=== PATIENT | male | born 1940 | race Caucasian/White ===

== ENCOUNTER 2016-06-14 07:40 | Emergency (ER) | payer OTHER ==
[2016-06-14 07:46] VITALS: BP 146/77; PULSE 86; TEMP 98; BMI 28.3
--- NOTE | 2016-06-14 08:32 | PDOC ---
History of Present Illness - General Chief Complaint: Injury Stated Complaint: RT ARM INJURY Time Seen by Provider: 06/14/16 08:14 History Source: Patient Exam Limitations: No Limitations - History of Present Illness Initial Comments: 06/15/16 08:40 My Chief complaint: upper rt. Arm pain History of present illness: Patient is a 76-year-old male with a history of COPD , hypertension here today complaining of right upper arm pain with certain movements and bruising of the medial aspect. Patient reports that a few days ago he was lifting bags of mulch at [employer] when one slipped out of his hand and he twisted his upper arm to catch it feeling a sharp pain in his right bicep. Patient reports that he area became bruised within the next day. Patient reports that it continues to be painful with certain movements and his daughter wanted him to come to have it checked out. Patient denies any radiation of pain down right arm or any numbness of arm. Patient denies any shoulder pain. He is able to flex his rt. bicep however Center of muscle is painful. Occurred: reports: other (3 days ago ) Upper Extremity Pain Location: right: arm (upper arm ) Method of Injury: reports: twisted (right arm while lifting bag of mulch) Extremity Pain Location - Extremity Pain Location Extremity Pain Locations: right: arm (upper ) Past History - Past Medical History Allergies/Adverse Reactions: Allergies Allergy/AdvReac Type Severity Reaction Status Date / Time No Known Allergies Allergy Verified 06/14/16 07:45 Home Medications: Ambulatory Orders Cetirizine HCl [Zyrtec -] 10 mg PO HS #14 tablet 09/18/13 Hydrochlorothiazide [Hctz -] 12.5 mg PO DAILY 09/18/13 Loratadine [Claritin -] 10 mg PO DAILY #14 tablet 09/18/13 Losartan Potassium 50 mg PO DAILY 09/18/13 Tiotropium [place] [Spiriva -] 1 inh PO DAILY 09/18/13 Diazepam [Valium -] 2 mg PO TID PRN #15 tablet 10/12/13 Meclizine HCl [Antivert -] 25 mg PO TID PRN #21 tablet 10/12/13 COPD: Yes HTN: Yes - Surgical History Abdominal Surgery: Yes (SMALL INTESTINE) - Psycho/Social/Smoking Cessation Hx Anxiety: No Suicidal Ideation: No Smoking Status: No Smoking History: Never smoked Number of Cigarettes Smoked Daily: 0 If you are a former smoker, when did you quit?: 08/2012 Information on smoking cessation initiated: No Hx Alcohol Use: No Drug/Substance Use Hx: No Substance Use Type: None Review of Systems - Review of Systems Able to Perform ROS?: Yes Constitutional: No: Symptoms Reported HEENTM: No: Symptoms Reported Respiratory: No: Symptoms reported Cardiac (ROS): No: Symptoms Reported ABD/GI: No: Symptoms Reported : No: Symptoms Reported Musculoskeletal: Yes: Muscle Pain (rt. bicep with bruising and slight swelling ) Integumentary: No: Symptoms Reported *Physical Exam - Vital Signs Last Vital Signs Temp Pulse Resp BP Pulse Ox 98 F 86 18 146/77 97 06/14/16 07:43 06/14/16 07:43 06/14/16 07:43 06/14/16 07:43 06/14/16 07:43 - Physical Exam General Appearance: Yes: Appropriately Dressed Comments:: 06/14/16 08:33 radial pulse 4 + rt. Extremity: positive: Normal Capillary Refill, Normal Range of Motion (rt. shoulder, elbow, wrist ), Tender (rt. bicep ), Swelling (slight edema rt. bicep ) Integumentary: positive: Ecchymosis (rt. bicep 10 cm x 9 cm ) Neurologic: positive: Normal Response, Respond to painful stimul (rt. upper arm ), Responsive. negative: Numbness, Sensory Deficit (rt. upper arm ) Medical Decision Making - Medical Decision Making 06/15/16 08:43 Patient is a 76-year-old male with a history of COPD, hypertension here today complaining of right upper arm pain with certain movements and bruising of the medial aspect. Patient reports that a few days ago he was lifting bags of mulch at [employer] when one slipped out of his hand and he twisted his upper arm to catch it feeling a sharp pain in his right bicep. Patient reports that he area became bruised within the next day. Patient reports that it continues to be painful with certain movements and his daughter wanted him to come to have it checked out. Patient denies any radiation of pain down right arm or any numbness of arm. Patient denies any shoulder pain. He is able to flex his rt. bicep however Center of muscle is painful. Pt. is rt. hand dominant. Rt. Bicep injury PLAN: Follow up with orthopedist for further eval Avoid strenous activities using rt. arm 06/15/16 08:43 *DC/Admit/Observation/Transfer Diagnosis at time of Disposition: Biceps muscle tear Qualifiers: Encounter type: initial encounter Laterality: right Qualified Code(s): S46.111A - Strain of muscle, fascia and tendon of long head of biceps, right arm , initial encounter - Discharge Dispostion Disposition: HOME Condition at time of disposition: Stable - Referrals Referrals: Charles Valentine MD, [Primary Care Provider] - Jermna Gonzalez MD [Staff Physician] - - Patient Instructions Additional Instructions: Avoid any strenous activities using right arm Up with Dr. Gonzalez for further evaluation call today Return to emergency room if symptoms worsen increased pain bruising any numbness of arm Patient voiced understanding of discharge instructions and all questions were answered
== END 2016-06-14 08:38 | disposition home or self-care (01) ==
LOC: JERFT 07:40
DX: S46.111A Strain of muscle, fascia and tendon of long head of biceps, right arm, initial encounter (principal); X50.0XXA Overexertion from strenuous movement or load, initial encounter; X50.9XXA Other and unspecified overexertion or strenuous movements or postures, initial encounter; Y93.89 Activity, other specified; Y92.59 Other trade areas as the place of occurrence of the external cause; Y99.8 Other external cause status; I10 Essential (primary) hypertension; J44.9 Chronic obstructive pulmonary disease, unspecified
CPT/HCPCS: 99281-25

== ENCOUNTER 2018-11-15 10:43 | Emergency (ER) | payer OTHER ==
[2018-11-15 10:49] VITALS: TEMP 98.4; BMI 27.6
[2018-11-15] MEDS ORDERED: ACETAMINOPHEN 325 MG TABLET (FP) PO ONE (11:21)
[2018-11-15] MEDS ORDERED: ACETAMINOPHEN 325 MG TABLET (FP) ONE (11:22)
--- NOTE | 2018-11-15 12:23 | PDOC ---
Documentation entered by Nabil Blank SCRIBE, acting as scribe for Cookie Quintero MD. Cookie Quintero MD: This documentation has been prepared by the Abhay hudson Aiswarya, SCRIBE, under my direction and personally reviewed by me in its entirety. I confirm that the documentation accurately reflects all work, treatment, procedures, and medical decision making performed by me. History of Present Illness - General Chief Complaint: Shortness of Breath Stated Complaint: FALL History Source: Patient Exam Limitations: No Limitations - History of Present Illness Initial Comments: 11/15/18 11:32 The patient is an 78 year old male, with a significant PMH of COPD and HTN, who presents to the emergency department for evaluation of a fall that occurred today. The patient was working around the house when he missed a step and fell on his right side. The patient states he hit a wooden post and notes pain to the right side lower ribs, no relief with Advil. The patient states pain is exacerbated with inspiration, no alleviating factors noted. The patient denies chest pain, headache and dizziness. Denies any head injury or altered mental status. Denies fever, chills, nausea, and vomit. Allergies: NKDA Past surgical history: Former smoker (quit 6 months ago) Social history: None reported PCP: None reported Past History - Past Medical History Allergies/Adverse Reactions: Allergies Allergy/AdvReac Type Severity Reaction Status Date / Time No Known Allergies Allergy Verified 11/15/18 10:49 Home Medications: Ambulatory Orders Cetirizine HCl [Zyrtec -] 10 mg PO HS #14 tablet 09/18/13 Hydrochlorothiazide [Hctz -] 12.5 mg PO DAILY 09/18/13 Loratadine [Claritin -] 10 mg PO DAILY #14 tablet 09/18/13 Losartan Potassium 50 mg PO DAILY 09/18/13 Tiotropium [place] [Spiriva -] 1 inh PO DAILY 09/18/13 Diazepam [Valium -] 2 mg PO TID PRN #15 tablet 10/12/13 Meclizine HCl [Antivert -] 25 mg PO TID PRN #21 tablet 10/12/13 oxyCODONE HCL [Roxicodone -] 5 mg PO Q6H PRN #15 tablet MDD 4 11/15/18 COPD: Yes (O2 SAT LOW 90S) HTN: Yes - Surgical History Abdominal Surgery: Yes (SMALL INTESTINE) - Psycho Social/Smoking Cessation Hx Smoking Status: No Smoking History: Former smoker Have you smoked in the past 12 months: No Number of Cigarettes Smoked Daily: 0 If you are a former smoker, when did you quit?: 6 MONTHS AGO Information on smoking cessation initiated: No Hx Alcohol Use: Yes Drug/Substance Use Hx: No Substance Use Type: None Review of Systems - Review of Systems Able to Perform ROS?: Yes Comments:: 11/15/18 11:33 GENERAL/CONSTITUTIONAL: No fever or chills. No weakness. HEAD, EYES, EARS, NOSE AND THROAT: No change in vision. No ear pain or discharge. No sore throat. CARDIOVASCULAR: No chest pain or shortness of breath. RESPIRATORY: No cough, wheezing, or hemoptysis. GASTROINTESTINAL: No nausea, vomiting, diarrhea or constipation. GENITOURINARY: No dysuria, frequency, or change in urination. MUSCULOSKELETAL: +right sided rib pain. SKIN: No rash NEUROLOGIC: No headache, vertigo, loss of consciousness, or change in strength/ sensation. ENDOCRINE: No increased thirst. No abnormal weight change. HEMATOLOGIC/LYMPHATIC: No anemia, easy bleeding, or history of blood clots. ALLERGIC/IMMUNOLOGIC: No hives or skin allergy. *Physical Exam - Vital Signs Last Vital Signs Temp Pulse Resp BP Pulse Ox 98.4 F 98 H 20 154/90 89 L 11/15/18 10:46 11/15/18 10:46 11/15/18 10:46 11/15/18 10:46 11/15/18 10:46 ED Treatment Course - RADIOLOGY Radiology Studies Ordered: Category Date Time Status CHEST - PA [RAD] Stat Radiology 11/15/18 11:21 Completed RIBS RIGHT SIDE [RAD] Stat Radiology 11/15/18 11:21 Completed - Medications Given in the ED: ED Medications Discontinued Medications Generic Name Dose Route Start Last Admin Trade Name Freq PRN Reason Stop Dose Admin Acetaminophen 650 mg 11/15/18 11:21 11/15/18 11:28 Tylenol - PO 11/15/18 11:22 650 mg ONCE ONE Administration Discharge - Discharge Information Problems reviewed: Yes Clinical Impression/Diagnosis: Rib fracture Condition: Good Disposition: HOME - Admission No - Additional Discharge Information Prescriptions: oxyCODONE HCL [Roxicodone -] 5 mg PO Q6H PRN #15 tablet MDD 4 PRN Reason: Pain - Follow up/Referral Referrals: Charles Wolf MD, MD [Primary Care Provider] - - Patient Discharge Instructions Patient Printed Discharge Instructions: Rib Fracture Additional Instructions: you have a broken rib on the right side, 6th rib. treatment is pain control and taking deep breaths using your incentive spirometer 12 times every 2 hours while awake. you can take 1/2 oxycodone 5mg tab (take only 2.5 mg) for severe pain not relieved with motrin or tylenol. return for shortness of breath, fever or any concerns. you should follow up with your primary dr DR WOLF call to schedule. - Post Discharge Activity
[2018-11-15 12:27] VITALS: BP 120/71; PULSE 74
== END 2018-11-15 12:33 | disposition home or self-care (01) ==
LOC: JER 10:43
DX: S22.31XA Fracture of one rib, right side, initial encounter for closed fracture (principal); W01.198A Fall on same level from slipping, tripping and stumbling with subsequent striking against other object, initial encounter; Y93.89 Activity, other specified; Y92.018 Other place in single-family (private) house as the place of occurrence of the external cause; Y99.8 Other external cause status; I10 Essential (primary) hypertension; J44.9 Chronic obstructive pulmonary disease, unspecified
CPT/HCPCS: 71045-TC-FY; 71101-TC-RT-FY; 99282-25